=== PATIENT | female | born 1955 | race Caucasian/White ===

== ENCOUNTER 2025-09-29 10:02 | Outpatient (CLI) | payer BC | END 2025-09-29 10:03 | disposition home or self-care (01) | LOC: CSHWCC 10:02 | PROVIDERS: ATTEND Nurse Practitioner Family | DX: T81.31XD Disruption of external operation (surgical) wound, not elsewhere classified, subsequent encounter (principal); L97.512 Non-pressure chronic ulcer of other part of right foot with fat layer exposed | CPT/HCPCS: 97597 ==

== ENCOUNTER 2025-10-06 08:35 | Outpatient (CLI) | payer BC | END 2025-10-06 08:36 | disposition home or self-care (01) | LOC: CSHWCC 08:35 | PROVIDERS: ATTEND Nurse Practitioner Family | DX: T81.31XD Disruption of external operation (surgical) wound, not elsewhere classified, subsequent encounter (principal); L97.512 Non-pressure chronic ulcer of other part of right foot with fat layer exposed | CPT/HCPCS: 11042 ==